=== PATIENT | female | born 2000 | race Asian ===

== ENCOUNTER 2022-06-17 21:29 | Emergency (ER) | payer OTHER ==
[~2022-06-17] VITALS: Ht 149.9 cm; Wt 45.9 kg
[2022-06-17] MEDS ORDERED: HYDROCODONE/ACETAMINOPHEN 5-325 MG TABLET PO ONE (22:00)
[2022-06-17] MEDS ORDERED: KETOROLAC TROMETHAMINE 60 MG/2 ML VIAL IM ONE (22:00)
[2022-06-18] MEDS ORDERED: IBUP-1554 PO (00:25)
[2022-06-18] MEDS ORDERED: HYDR-4723 PO (00:25)
[2022-06-18] MEDS ORDERED: CEPH-558 PO (00:25)
[2022-06-18 01:47] VITALS: BP 121/69
== END 2022-06-18 01:53 | disposition home or self-care (01) ==
LOC: EMS 21:31
DX: T63.511A Toxic effect of contact with stingray, accidental (unintentional), initial encounter (principal); Y92.832 Beach as the place of occurrence of the external cause
CPT/HCPCS: 99283